=== PATIENT | female | born 1980 | race Two or more races ===

== ENCOUNTER 2016-10-14 10:35 | Emergency (ER) | payer SELFPAY ==
[2016-10-14 10:41] VITALS: BMI 32.3
[2016-10-14 10:49] VITALS: TEMP 97.6
[2016-10-14] MEDS ORDERED: ONDANSETRON HCL 4 MG/2 ML VIAL IV ONE (11:32)
[2016-10-14] MEDS ORDERED: NS 1,000 ML IV ONE (11:32)
[2016-10-14] MEDS ORDERED: HYDROmorphone 1 MG INJECTION IV ONE (11:32)
--- NOTE | 2016-10-14 11:35 | EDPRACDOC ---
- General Information Chief Complaint: Female Urogenital Problems Stated Complaint: LOWER BACK PAIN/ LEFT FLANK PAIN Time Seen by Provider: 10/14/16 11:03 Information Source: Patient Home Medications: Home Medications Cephalexin Monohydrate [Keflex] 500 mg PO Q6H #40 cap 10/14/16 Hydrocodone Bit/Acetaminophen [Hydrocodon-Acetaminophen 5-325] 1 tab PO Q4H PRN #10 tab 10/14/16 Promethazine [Phenergan] 25 mg PO Q8H PRN #15 tab 10/14/16 Sulfamethoxazole/Trimethoprim [Bactrim Ds Tablet] 1 tab PO BID #20 tab 10/14/16 Allergies/Adverse Reactions: Allergies Allergy/AdvReac Type Severity Reaction Status Date / Time No Known Allergies Allergy Verified 10/14/16 10:41 - History of Present Illness HPI: PT WITH LEFT FLANK PAIN, LEFT ABD PAIN FOR 5 DAYS, WORSENING OVER THE PAST FEW DAYS. NO N/V. + FEVER. PAIN 10/10. Onset: 4 DAYS ED Past Medical History - History Reviewed Yes Nurses notes reviewed and agree except as marked - Patient Medical History Psychological History: Denies: Depression - Social Medical History Smoking Status: Never smoker EDM Review of Systems - Review of Systems ROS Negative Except as Marked: Yes All systems reviewed and were negative except as marked Constitutional: Fever Eyes: No Symptoms Reported Throat: No Symptoms Reported Respiratory: No Symptoms Reported Cardiovascular: No Symptoms Reported Genitourinary: Dysuria - Physical Exam Constitutional: Alert (Awake), No apparent distress Oriented to: Time, Person, Place Last recorded Vital Signs: Last Vital Signs Temp 97.6 F 10/14/16 10:46 Pulse 130 H 10/14/16 10:40 Resp 20 10/14/16 10:40 BP 162/100 10/14/16 10:40 Pulse Ox 100 10/14/16 10:40 Oxygen Pulse Oxygen Saturation 100 O2 Device Oxygen Flow Rate Fraction of Inspired Oxygen ( FIO2) - HEENT Head: Normal ( normocephalic) Eye Exam: Normal (PERRL, EOMI, Sclera white) Oropharynx: Normal (Pharynx:Moist without exudate,Gums-no swelling) Nose: No Symptoms Reported (septum midline) Neck: Normal (FROM, trachea at midline) - Respiratory/Cardiovascular Respiratory: Normal - CTA (BBS clear to auscultation without adventitious sounds ) Cardiovascular: Tachycardia - GI Auscultation: Normal (NABS) Palpation: Normal (Soft,No rebound or guarding, non distended) Tenderness: Mild (LEFT SIDE ABD PAIN). negative: Guarding, Rebound, Rigidity Bird's Sign: Negative - Musculoskeletal Back: CVA Tenderness (RIGHT, MILD) Extremities: Normal (Normal tone, Pulses 2+ No cyanosis or edema, FROM) - Integumentary Skin: Normal, Warm, Dry Lymphatics: Normal (no adenopathy) - Neurologic Memory Impaired: Normal Motor Function: Normal (Normal tone, Pulses 2+ No cyanosis or edema, FROM) Cranial Nerve: Normal (CN II-X11 intact sensation, strength 5/5) Cerebellar: Normal Mood Description: Normal Perception: Normal - Results 10/14/16 11:45 10/14/16 11:45 Decision Time to Discharge: 12:18 - Departure Yes I personally saw and evaluated the patient. Disposition: Home Condition: Stable Final Diagnosis: Pyelonephritis Instructions: Acute Pyelonephritis (ED) Education/Counseling Given To: Patient Education/Counseling Given Regarding: Diagnosis Referrals: None,No Provider [Primary Care Provider] - 1-2 days Prescriptions: Cephalexin Monohydrate [Keflex] 500 mg PO Q6H #40 cap Hydrocodone Bit/Acetaminophen [Hydrocodon-Acetaminophen 5-325] 1 tab PO Q4H PRN #10 tab PRN Reason: Pain Promethazine [Phenergan] 25 mg PO Q8H PRN #15 tab PRN Reason: Nausea/Vomiting Sulfamethoxazole/Trimethoprim [Bactrim Ds Tablet] 1 tab PO BID #20 tab
[2016-10-14 11:54] LABS: AUTOMATED BASOPHIL 0.4 % (0-2); AUTOMATED EOSINOPHIL 0.3 % (0-5); AUTOMATED LYMPH 15.4 % (17-44); AUTOMATED MONOCYTE 11.7 % (3-10); AUTOMATED NEUTROPHIL 72.2 % (45-76); MPV 8.4 fL (7.4-10.4)
[2016-10-14 12:06] LABS: BLOOD UREA NITROGEN 9 MG/DL (7-17); CALCIUM 9.1 MG/DL (8.4-10.2); CALCULATED OSMOLALITY 270 MOs/Kg (270-290); CHLORIDE 100 mEq/L (98-107); GLUCOSE 101 MG/DL (70-99); SODIUM LEVEL 141 mEq/L (137-146); TOTAL PROTEIN 8.2 G/DL (6.3-8.2)
[2016-10-14 12:12] LABS: LEUKOCYTES/URINE 2+ (NEGATIVE); NITRITE/URINE NEG (NEGATIVE); RBC/URINE 20-30 (0-5); URINE OCCULT BLOOD 3+ (NEG/TRACE); WBC/URINE TNTC (0-5)
[2016-10-14] MEDS ORDERED: CEFTRIAXONE 1 GM in D5W 100 ML IV ONE (12:16)
[2016-10-14 13:09] VITALS: BP 132/81; PULSE 106
== END 2016-10-14 13:08 | disposition home or self-care (01) ==
LOC: ED 10:35
DX: N12 Tubulo-interstitial nephritis, not specified as acute or chronic (principal)
CPT/HCPCS: 36415; 80053; 81001; 81025; 85025; 87077; 87086; 87186; 96361; 96365; 96375; 99284; J0696; J1170; J2405; J7060

== ENCOUNTER 2016-10-27 20:18 | Emergency (ER) | payer SELFPAY ==
[2016-10-27 20:30] VITALS: BMI 32.5
[2016-10-27] MEDS ORDERED: ACETAMINOPHEN 325 MG/TAB TABLET PO ONE (20:32)
[2016-10-27 20:47] LABS: AUTOMATED BASOPHIL 0.7 % (0-2); AUTOMATED LYMPH 18.2 % (17-44); AUTOMATED MONOCYTE 10.7 % (3-10); AUTOMATED NEUTROPHIL 70.4 % (45-76)
[2016-10-27 20:51] LABS: LEUKOCYTES/URINE NEG (NEGATIVE); NITRITE/URINE NEG (NEGATIVE); URINE OCCULT BLOOD TRACE (NEG/TRACE)
[2016-10-27 20:58] LABS: BLOOD UREA NITROGEN 9 MG/DL (7-17); CALCIUM 9.2 MG/DL (8.4-10.2); CALCULATED OSMOLALITY 266 MOs/Kg (270-290); CHLORIDE 98 mEq/L (98-107); GLUCOSE 120 MG/DL (70-99); SODIUM LEVEL 138 mEq/L (137-146); TOTAL PROTEIN 9.3 G/DL (6.3-8.2)
--- NOTE | 2016-10-27 22:25 | DIRPT ---
CLINICAL DATA: 36-year-old female with left-sided flank pain EXAM: CT ABDOMEN AND PELVIS WITHOUT CONTRAST TECHNIQUE: Multidetector CT imaging of the abdomen and pelvis was performed following the standard protocol without IV contrast. COMPARISON: CT dated 09/20/2015 FINDINGS: Evaluation of this exam is limited in the absence of intravenous contrast. Evaluation is also limited due to respiratory motion artifact. Minimal bibasilar dependent atelectatic changes. No intra-abdominal free air or free fluid. Mild diffuse hepatic steatosis. The gallbladder is contracted. The pancreas, spleen, adrenal glands, kidneys, visualized ureters, and urinary bladder appear unremarkable. The uterus is grossly unremarkable. Moderate stool throughout the colon. No evidence of bowel obstruction or inflammation. Normal appendix. The abdominal aorta and IVC appear grossly unremarkable on this noncontrast study. No portal venous gas identified. There is no adenopathy. The abdominal wall soft tissues appear unremarkable. Left L5 pars defect. The osseous structures are otherwise intact. IMPRESSION: No acute intra-abdominal or pelvic pathology. Electronically Signed By: Tj Cordova M.D. On: 10/27/2016 22:23
[2016-10-28] MEDS ORDERED: CIPROFLOXACIN HCL 500 MG TAB PO ONE (01:13)
[2016-10-28] MEDS ORDERED: CEFTRIAXONE 500 MG VIAL IM ONE (01:13)
[2016-10-28] MEDS ORDERED: ONDANSETRON HCL 4 MG ODT TAB PO ONE (01:13)
--- NOTE | 2016-10-28 01:16 | EDPRACDOC ---
- General Information Chief Complaint: Female Urogenital Problems Stated Complaint: LT FLANK PAIN NO HX KIDNEY STONES FEVER Time Seen by Provider: 10/28/16 01:09 Information Source: Patient Home Medications: Home Medications Ciprofloxacin HCl [Cipro] 500 mg PO BID #20 tab 10/28/16 Hydrocodone Bit/Acetaminophen [Hydrocodon-Acetaminophen 5-325] 1 tab PO Q4H PRN #10 tab 10/28/16 Promethazine [Phenergan] 25 mg PO Q8H PRN #15 tab 10/28/16 Allergies/Adverse Reactions: Allergies Allergy/AdvReac Type Severity Reaction Status Date / Time No Known Allergies Allergy Verified 10/27/16 20:30 - History of Present Illness HPI: PT PRESENTS WITH CONTINUED FEVER AND LEFT FLANK PAIN. PT HAS BEEN TAKING HER ANTIBIOTICS DIRECTED. Onset: YESTERDAY Urinary Pain Location: Reports: Left Flank Symptom Onset: Reports: Gradual Pain Severity: Moderate Pain Quality: Reports: Aching History of: Reports: UTI : No Oral Intake: Normal Urinary Output: Decreased Associated Signs and Symptoms: Reports: Fever, Nausea ED Past Medical History - History Reviewed Yes Nurses notes reviewed and agree except as marked - Patient Medical History Psychological History: Denies: Depression Systemic History: Denies: Cancer - Social Medical History Smoking Status: Never smoker EDM Review of Systems - Review of Systems ROS Negative Except as Marked: Yes All systems reviewed and were negative except as marked - Physical Exam Constitutional: Alert Oriented to: Time, Person, Place Last recorded Vital Signs: Last Vital Signs Temp 102.8 F H 10/27/16 20:25 Pulse 130 H 10/27/16 20:25 Resp 20 10/27/16 20:25 BP 123/83 10/27/16 20:25 Pulse Ox 97 10/27/16 20:25 Oxygen Pulse Oxygen Saturation 97 O2 Device Room Air Oxygen Flow Rate Fraction of Inspired Oxygen ( FIO2) - HEENT Head: Normal ( normocephalic) Eye Exam: Normal (PERRL, EOMI, Sclera white) Oropharynx: Normal (Pharynx:Moist without exudate,Gums-no swelling) Nose: No Symptoms Reported (septum midline) Neck: Normal (FROM, trachea at midline) - Respiratory/Cardiovascular Respiratory: Normal - CTA (BBS clear to auscultation without adventitious sounds ) Cardiovascular: Tachycardia - GI Auscultation: Normal (NABS) Palpation: Normal (Soft,No rebound or guarding, non distended) Tenderness: Mild, Suprapubic, Other (LEFT FLANK) Bird's Sign: Negative Rectal Exam: Deferred - Musculoskeletal Back: Normal (Non-Tender) Extremities: Normal (Normal tone, Pulses 2+ No cyanosis or edema, FROM) - Integumentary Skin: Normal, Warm, Dry Lymphatics: Normal (no adenopathy) - Neurologic Memory Impaired: Normal Motor Function: Normal (Normal tone, Pulses 2+ No cyanosis or edema, FROM) Cranial Nerve: Normal (CN II-X11 intact sensation, strength 5/5) Cerebellar: Normal Mood Description: Normal Perception: Normal - Differential Diagnosis UTI - Re-evaluation Re-evaluation 1 Re-evaluation Time: (URINE CULTURE FROM LAST VIST REVIEWED. CIPRO IS THE BETTER MEDICATION FOR PATIENT. WILL CHANGE FOR PATIENT) - Results 10/27/16 20:30 10/27/16 20:30 WBC 8.2 xk/uL (3.8-10.8) 10/27/16 20:30 RBC 4.86 xM/uL (4.20-5.40) 10/27/16 20:30 Hgb 14.5 g/dL (12.0-16.0) 10/27/16 20:30 Hct 42.9 % (36-47) 10/27/16 20:30 MCV 88 fL (81-99) 10/27/16 20:30 MCH 29.8 pg (27-32) 10/27/16 20:30 MCHC 33.8 g/dl (33-36) 10/27/16 20:30 RDW 13.8 % (11.5-14.5) 10/27/16 20:30 Plt Count 388 xk/uL (130-400) 10/27/16 20:30 MPV 8.0 fL (7.4-10.4) 10/27/16 20:30 Neut % (Auto) 70.4 % (45-76) 10/27/16 20:30 Lymph % (Auto) 18.2 % (17-44) 10/27/16 20:30 Wood % (Auto) 10.7 % (3-10) H 10/27/16 20:30 Eos % (Auto) 0.0 % (0-5) 10/27/16 20:30 Baso % (Auto) 0.7 % (0-2) 10/27/16 20:30 Absolute Neuts (auto) 5.74 xk/uL (1.7-8.2) 10/27/16 20:30 Absolute Lymphs (auto) 1.48 xk/uL (0.65-4.75) 10/27/16 20:30 Sodium 138 mEq/L (137-146) 10/27/16 20:30 Potassium 3.1 mEq/L (3.5-5.1) L 10/27/16 20:30 Chloride 98 mEq/L (98-107) 10/27/16 20:30 Carbon Dioxide 24 mMOL/L (22-33) 10/27/16 20:30 Anion Gap 19 mEq/L (8-16) H 10/27/16 20:30 BUN 9 MG/DL (7-17) 10/27/16 20:30 Creatinine 1.00 MG/DL (0.52-1.04) 10/27/16 20:30 Estimated GFR (MDRD) > 60 mL/min (>=60) 10/27/16 20:30 Glucose 120 MG/DL (70-99) H 10/27/16 20:30 Calculated Osmolality 266 MOs/Kg (270-290) L 10/27/16 20:30 Calcium 9.2 MG/DL (8.4-10.2) 10/27/16 20:30 Total Bilirubin 0.5 MG/DL (0.2-1.3) 10/27/16 20:30 AST 37 IU/L (14-36) H 10/27/16 20:30 ALT 36 IU/L (9-52) 10/27/16 20:30 Alkaline Phosphatase 84 IU/L (38-126) 10/27/16 20:30 Total Protein 9.3 G/DL (6.3-8.2) H 10/27/16 20:30 Albumin 4.7 G/DL (3.5-5.0) 10/27/16 20:30 Urine Color Yellow 10/27/16 20:30 Urine Clarity Clear 10/27/16 20:30 Urine pH 5.0 (5.0-8.0) 10/27/16 20:30 Ur Specific [place] 1.010 (1.003-1.035) 10/27/16 20:30 Urine Protein Neg (NEG/TRACE) 10/27/16 20:30 Urine Glucose (UA) Neg (NEGATIVE) 10/27/16 20:30 Urine Ketones Neg (NEGATIVE) 10/27/16 20:30 Urine Occult Blood Trace (NEG/TRACE) 10/27/16 20:30 Urine Nitrite Neg (NEGATIVE) 10/27/16 20:30 Urine Bilirubin Neg (NEGATIVE) 10/27/16 20:30 Urine Urobilinogen 0.2 MG/DL (0-1) 10/27/16 20:30 Ur Leukocyte Esterase Neg (NEGATIVE) 10/27/16 20:30 Urine RBC 5-10 (0-5) H 10/27/16 20:30 Urine WBC 5-10 (0-5) H 10/27/16 20:30 Ur Epithelial Cells 2+ 10/27/16 20:30 Urine Bacteria Few (NEG/FEW) 10/27/16 20:30 Urine Mucus Mod (NEG/OCC) H 10/27/16 20:30 Urine Test Neg (NEGATIVE) 10/27/16 20:30 Lab Results 10/27/16 10/27/16 10/27/16 20:30 20:30 20:30 WBC 8.2 RBC 4.86 Hgb 14.5 Hct 42.9 MCV 88 MCH 29.8 MCHC 33.8 RDW 13.8 Plt Count 388 MPV 8.0 Neut % (Auto) 70.4 Lymph % (Auto) 18.2 Wood % (Auto) 10.7 H Eos % (Auto) 0.0 Baso % (Auto) 0.7 Absolute Neuts (auto) 5.74 Absolute Lymphs (auto) 1.48 Sodium Potassium Chloride Carbon Dioxide Anion Gap BUN Creatinine Estimated GFR (MDRD) Glucose Calculated Osmolality Calcium Total Bilirubin AST ALT Alkaline Phosphatase Total Protein Albumin Urine Color Yellow Urine Clarity Clear Urine pH 5.0 Ur Specific [place] 1.010 Urine Protein Neg Urine Glucose (UA) Neg Urine Ketones Neg Urine Occult Blood Trace Urine Nitrite Neg Urine Bilirubin Neg Urine Urobilinogen 0.2 Ur Leukocyte Esterase Neg Urine RBC 5-10 H Urine WBC 5-10 H Ur Epithelial Cells 2+ Urine Bacteria Few Urine Mucus Mod H Urine Test Neg 10/27/16 20:30 WBC RBC Hgb Hct MCV MCH MCHC RDW Plt Count MPV Neut % (Auto) Lymph % (Auto) Wood % (Auto) Eos % (Auto) Baso % (Auto) Absolute Neuts (auto) Absolute Lymphs (auto) Sodium 138 Potassium 3.1 L Chloride 98 Carbon Dioxide 24 Anion Gap 19 H BUN 9 Creatinine 1.00 Estimated GFR (MDRD) > 60 Glucose 120 H Calculated Osmolality 266 L Calcium 9.2 Total Bilirubin 0.5 AST 37 H ALT 36 Alkaline Phosphatase 84 Total Protein 9.3 H Albumin 4.7 Urine Color Urine Clarity Urine pH Ur Specific [place] Urine Protein Urine Glucose (UA) Urine Ketones Urine Occult Blood Urine Nitrite Urine Bilirubin Urine Urobilinogen Ur Leukocyte Esterase Urine RBC Urine WBC Ur Epithelial Cells Urine Bacteria Urine Mucus Urine Test Decision Time to Discharge: 01:17 - Departure Disposition: Home Condition: Stable Final Diagnosis: UTI (urinary tract infection) Qualifiers: Urinary tract infection type: acute cystitis Hematuria presence: with hematuria Qualified Code(s): N30.01 - Acute cystitis with hematuria Instructions: Urinary Tract Infection in Women (ED), Dysuria Education/Counseling Given To: Patient Education/Counseling Given Regarding: Diagnosis, Treatment, Prognosis, Follow Up Referrals: Lam Pierson MD [Staff Physician] - One Week Prescriptions: Ciprofloxacin HCl [Cipro] 500 mg PO BID #20 tab Hydrocodone Bit/Acetaminophen [Hydrocodon-Acetaminophen 5-325] 1 tab PO Q4H PRN #10 tab PRN Reason: Pain Promethazine [Phenergan] 25 mg PO Q8H PRN #15 tab PRN Reason: Nausea/Vomiting Additional Instructions: INCREASE FLUID INTAKE. FOLLOW UP WITH PRIMARY CARE PROVIDER NEXT WEEK. TAKE ALL ANTIBIOTICS PRESCRIBED. RETURN TO THE ED FOR WORSENING SYMPTOMS OR CONCERNS.
[2016-10-28] MEDS ORDERED: WATER 10 ML ONE (01:24)
[2016-10-28 02:02] VITALS: BP 149/78; PULSE 85; TEMP 99.9
== END 2016-10-28 02:00 | disposition home or self-care (01) ==
LOC: ED 20:18
DX: N30.01 Acute cystitis with hematuria (principal)
CPT/HCPCS: 36415; 74176; 80053; 81001; 81025; 85025; 96372; 99283; J0696; J3490